=== PATIENT | male | born 1985 | race Caucasian/White ===

== ENCOUNTER 2017-09-23 01:44 | Emergency (ER) | payer BC, SELFPAY ==
[2017-09-23 01:45] VITALS: BP 132/89; PULSE 50; RESP 16; TEMP 36.7; O2SAT 98; BMI 26.4
--- NOTE | 2017-09-23 02:15 | ED.DCSUM_ITS ---
- ER Visit Summary Date of Service: 09/23/17 Chief Complaint: Left leg weakness History of Present Illness: The patient is a [address] Mcdonald and Dr. Dial, a neurologist in [place]. He reports that he has left leg weakness that has been present for approximately 6 weeks. Reports that initially was his toes and then his foot. Reports that he has had weakness in his left thigh for approximately 1 week. He states the right side is not involved. He reports that tonight just prior to coming to the emergency department his left foot was purple and swollen. States that this was approximately 30 minutes ago and it is now completely resolved. The discoloration as well as the swelling. Patient denied any pain in his leg or paresthesias at that time. Patient reports that he has had labs and an MRI of his brain and C-spine for this already. He had an MRI of his lumbar spine approximately 18 months ago. He is supposed to be scheduled to get an EMG. He denies any recent trauma. No fall, MVA, or change in activity. Physical Examination: Vitals: Stable. Afebrile. General: Well-nourished and well-developed. Head: Normocephalic atraumatic. Neck: Supple, no lymphadenopathy. No JVD. Nontender. Cardiovascular: Regular rate and rhythm. No murmurs. Respiratory: No respiratory distress. Clear to auscultation bilaterally. Abdominal: Soft, nontender, nondistended, normal bowel sounds. No guarding, rebound, or peritoneal signs. Back: Nontender. Extremities: Nontender, no edema. 2+ femoral and dorsalis pedis pulse bilaterally. He has no discoloration of the skin. There is no erythema or edema. He has less than 2 second capillary refill. He has normal sensation light touch. He has 0 out of 5 dorsiflexion, plantarflexion, and extensor hallucis longus on the left. He has 5 out of 5 dorsiflexion, plantarflexion, extensor hallucis longus on the right. There is no muscle wasting of his calf or thigh. Skin: Normal color, no rash. Neurologic: Alert and oriented ?3. Cranial nerves II through XII are intact. Normal strength and sensation. Psych: Normal affect. Test Results: Patient refused IV/labs/CTA of the abdomen with runoff. Emergency Department Course and Treatment: Patient is resting comfortably. He does not appear to be in any distress. Treatment Plan: I had a prolonged discussion the patient at this time I do not have an expiration for his symptoms. He is instructed to follow-up with his primary care physician and neurologist as soon as possible for further evaluation. Return to the emergency department for any worsening symptoms. Disposition: To home in improved and stable condition. Impression: 1. Left leg weakness, chronic, uncertain cause. This note was generated with [employer] dictation software. It may contain incorrect words, spelling, and punctuation that were not noted in review of the chart prior to signing ED Disposition - Plan for ED Patient: Disposition: Home or Assisted Living Chief Complaint: Lower Extremity Injury Instructions: ED Foot Drop Referrals: Liyah Mae DO [Primary Care Provider] - As soon as possible
[2017-09-23 02:51] VITALS: BP 132/89; PULSE 50; RESP 15; O2SAT 97
== END 2017-09-23 02:52 | disposition home or self-care (01) ==
LOC: ED 02:37
PROVIDERS: Emergency Provider Emergency Medicine; PCP Family Medicine
DX: R29.898 Other symptoms and signs involving the musculoskeletal system (principal); R20.2 Paresthesia of skin; M79.89 Other specified soft tissue disorders; E03.9 Hypothyroidism, unspecified; G40.89 Other seizures; Z79.899 Other long term (current) drug therapy
CPT/HCPCS: 99282

== ENCOUNTER 2020-02-16 01:45 | Emergency (ER) | payer MEDICAID, SELFPAY ==
[2020-02-16 01:45] VITALS: BP 142/85; PULSE 61; RESP 16; TEMP 36.6; O2SAT 95; BMI 24.0
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
--- NOTE | 2020-02-16 02:48 | ED.DEP ---
ED Disposition - Plan for ED Patient: Instructions: ED Sprain Hip Prescriptions: Naproxen [Naprosyn] 500 mg PO BID PRN #20 tab Prescription Printed Referrals: Liyah Mae DO [Primary Care Provider] - Jagdeep Charles DO [STAFF PHYSICIAN] - 3-5 Days
== END 2020-02-16 02:57 | disposition home or self-care (01) ==
LOC: ED 02:37
PROVIDERS: Emergency Provider Emergency Medicine; PCP Family Medicine
DX: M25.551 Pain in right hip (principal); E03.9 Hypothyroidism, unspecified; Z79.899 Other long term (current) drug therapy
CPT/HCPCS: 73502; 99282